=== PATIENT | female | born 1990 | race American Indian/Alaskan Native ===

== ENCOUNTER 2021-06-27 01:04 | Emergency (ER) | payer OTHER ==
[2021-06-27 01:34] VITALS: BP 162/90
[2021-06-27] MEDS ORDERED: IBUPROFEN 800 MG TAB PO ONE (01:37)
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
== END 2021-06-27 02:40 | disposition home or self-care (01) ==
LOC: ED 01:04
DX: S80.02XA Contusion of left knee, initial encounter (principal); S80.01XA Contusion of right knee, initial encounter; F17.210 Nicotine dependence, cigarettes, uncomplicated; Z72.89 Other problems related to lifestyle; V87.7XXA Person injured in collision between other specified motor vehicles (traffic), initial encounter; Y93.89 Activity, other specified; Y92.488 Other paved roadways as the place of occurrence of the external cause; Y99.8 Other external cause status
CPT/HCPCS: 99283

== ENCOUNTER 2022-05-28 18:33 | Emergency (ER) | payer SELFPAY ==
[2022-05-28 19:14] VITALS: BP 144/105
--- NOTE | 2022-05-28 21:13 | Emergency Department Report ---
ED General Adult HPI - General Chief complaint: Urogenital-Female Stated complaint: VAGINAL BURNING Time Seen by Provider: 05/28/22 20:42 Source: patient Mode of arrival: Ambulatory Limitations: No Limitations - History of Present Illness Initial comments: 31-year-old female comes emerged from complaining of vaginal discharge and coming in contact with unknown STD states that her boyfriend was treated for an STD patient is not interested in testing only was treated Male presents emerged department to be treated. She reports no fever, chills, sweats but no nausea, no vomiting, no hemoptysis hematemesis hematochezia. -: Gradual Radiation: non-radiation Severity scale (0 -10): 0 Quality: aching, dull Consistency: constant Associated Symptoms: denies other symptoms Treatments Prior to Arrival: none - Related Data Previous Rx's Medication Instructions Recorded Last Taken Type Ibuprofen [Motrin 800 MG tab] 800 mg PO Q8HR PRN #20 tablet 06/27/21 Unknown Rx traMADoL [Ultram] 50 mg PO Q6HR PRN #10 tablet 06/27/21 Unknown Rx Azithromycin [Zithromax TAB] 1,000 mg PO ONCE #2 tablet 05/28/22 Unknown Rx DOXYCYCLINE Hyclate [Vibramycin 100 mg PO BID #28 capsule 05/28/22 Unknown Rx CAP] metroNIDAZOLE [Flagyl] 2,000 mg PO ONCE #4 tablet 05/28/22 Unknown Rx Allergies Allergy/AdvReac Type Severity Reaction Status Date / Time amoxicillin [From Augmentin] Allergy Unknown Verified 05/28/22 18:42 clavulanic acid Allergy Unknown Verified 05/28/22 18:42 [From Augmentin] ED Review of Systems ROS: Stated complaint: VAGINAL BURNING Other details as noted in HPI Comment: All other systems reviewed and negative ED Past Medical Hx - Surgical History Additional Surgical History: Right-sided ectopic - Social History Smoking Status: Current Every Day Smoker (1/2 pack/day) Substance Use Type: None (Denies illicit drug use), Alcohol (Occasional) - Medications Home Medications: Home Medications Medication Instructions Recorded Confirmed Last Taken Type Ibuprofen [Motrin 800 MG tab] 800 mg PO Q8HR PRN #20 tablet 06/27/21 Unknown Rx traMADoL [Ultram] 50 mg PO Q6HR PRN #10 tablet 06/27/21 Unknown Rx Azithromycin [Zithromax TAB] 1,000 mg PO ONCE #2 tablet 05/28/22 Unknown Rx DOXYCYCLINE Hyclate [Vibramycin 100 mg PO BID #28 capsule 05/28/22 Unknown Rx CAP] metroNIDAZOLE [Flagyl] 2,000 mg PO ONCE #4 tablet 05/28/22 Unknown Rx ED Physical Exam - General Limitations: No Limitations General appearance: alert, in no apparent distress - Head Head exam: Present: atraumatic, normocephalic - Eye Eye exam: Present: normal appearance, PERRL, EOMI - ENT ENT exam: Present: mucous membranes moist - Neck Neck exam: Present: normal inspection - Respiratory Respiratory exam: Present: normal lung sounds bilaterally. Absent: respiratory distress - Cardiovascular Cardiovascular Exam: Present: regular rate, normal rhythm. Absent: systolic murmur, diastolic murmur, rubs, gallop - GI/Abdominal GI/Abdominal exam: Present: soft, normal bowel sounds. Absent: tenderness, guarding, rebound - Extremities Exam Extremities exam: Present: normal inspection - Back Exam Back exam: Present: normal inspection. Absent: CVA tenderness (R), CVA tenderness (L) - Neurological Exam Neurological exam: Present: alert, oriented X3, CN II-XII intact, normal gait - Psychiatric Psychiatric exam: Present: normal affect, normal mood - Skin Skin exam: Present: warm, dry, intact, normal color. Absent: rash ED Course Vital Signs 05/28/22 18:37 Temperature 98.7 F Pulse Rate 71 Respiratory 16 Rate Blood Pressure 144/105 [Right] O2 Sat by Pulse 98 Oximetry ED Medical Decision Making - Medical Decision Making Were seen in the emergency department for possible STD exposure and treated accordingly based on the general STDs and recommended to follow-up with the health department for further treatment and testing for STDs. Please refrain from sexual activity for the next 10 days Critical care attestation.: If time is entered above; I have spent that time in minutes in the direct care of this critically ill patient, excluding procedure time. ED Disposition Clinical Impression: Possible exposure to STD Disposition: 01 HOME / SELF CARE / HOMELESS Is pt being admited?: No Does the pt Need Aspirin: No Condition: Stable Instructions: Safe Sex, Vaginitis, Syphilis, Contact Precautions, Genital Warts, [id number], Trichomoniasis Additional Instructions: Be seen by members department for any possible STD exposure. Due to your request you have not tested but you have been treated for these the most likely STDs it is recommended to follow-up with health department for definitive treatment and testing. Please refinement sexual activity for the next 10 to 14 days Prescriptions: metroNIDAZOLE [Flagyl] 2,000 mg PO ONCE #4 tablet DOXYCYCLINE Hyclate [Vibramycin CAP] 100 mg PO BID #28 capsule Azithromycin [Zithromax TAB] 1,000 mg PO ONCE #2 tablet Referrals: [facility] Depart [Outside] - 3-5 Days
== END 2022-05-28 21:52 | disposition home or self-care (01) ==
LOC: ED 18:33
DX: Z20.2 Contact with and (suspected) exposure to infections with a predominantly sexual mode of transmission (principal); F17.200 Nicotine dependence, unspecified, uncomplicated; Z91.09 Other allergy status, other than to drugs and biological substances
CPT/HCPCS: 99282